=== PATIENT | female | born 1965 | race Caucasian/White ===

== ENCOUNTER 2025-02-05 11:08 | Inpatient (IN) | payer OTHER ==
[2025-02-05] VITALS (7 sets, daily range): BP systolic 143–161; BP diastolic 55–73
[~2025-02-05] VITALS: Ht 162.6 cm; Wt 111.8 kg
[2025-02-05] MEDS ORDERED: METOPROLOL SUC100 MG PO (11:27)
[2025-02-05] MEDS ORDERED: TRESIBA100 UNIT/1 SQ (11:27)
[2025-02-05] MEDS ORDERED: NOVOLOG100 UNIT/2 (11:27)
[2025-02-05] MEDS ORDERED: COZAAR100 MG PO (11:28)
[2025-02-05] MEDS ORDERED: PIPERACILLIN/TAZOBACTAM 4.5 GM in SODIUM CHLORIDE 0.9% 100 ML IV ONE (11:45)
[2025-02-05 11:54] LABS: BASOPHILS 0.2 % (0.1-1.2); EOSINOPHILS 0.1 % (0.7-5.8); LYMPHOCYTES 6.6 % (19.3-51.7); MCH 28.7 PG (25.6-32.2); MCHC 34.3 g/dL (32.2-35.5); MCV 83.6 fL (79.4-94.8); MONOCYTES 2.4 % (4.7-12.5); NEUTROPHILS 89.6 % (34.0-71.1); RBC 4.64 M/uL (3.93-5.22)
[2025-02-05 12:15] LABS: ALT (SGPT) 21.0 U/L (14-59); AST (SGOT) 16.0 U/L (15-37); GLOMERULAR FILTRATION RATE,EST 30.0 mL/min (>60); PROTEIN, TOTAL 6.9 g/dL (6.4-8.2); UREA NITROGEN 47.0 mg/dL (7-18)
[2025-02-05] MEDS ORDERED: Insulin Regular, Human 100 UNIT/ML ML IV ONE ×3 (12:30→14:45)
[2025-02-05] MEDS ORDERED: LACTATED RINGER'S 1,000 ML IV ONE (12:30)
[2025-02-05 12:31] LABS: LACTIC ACID, BLOOD 1.4 mmol/L (0.4-2.0)
[2025-02-05] MEDS ORDERED: LACTATED RINGER'S 1,000 ML IV SCH (15:15)
[2025-02-05] MEDS ORDERED: KETOROLAC TROMETHAMINE 30 MG/ML VIAL IV PRN (15:15)
[2025-02-05] MEDS ORDERED: GLUCAGON,HUMAN RECOMBINANT 1 MG/ML VIAL SUB-Q PRN ×2 (15:30→19:00)
[2025-02-05] MEDS ORDERED: IBLOOD GLUCOSE TEST STRIP 1 EA TEST XX PRN ×2 (15:30→19:00)
[2025-02-05] MEDS ORDERED: DEXTROSE 5% 1,000 ML IV PRN ×2 (15:30→19:00)
[2025-02-05] MEDS ORDERED: DEXTROSE 50% 50 ML SYR IV PRN ×4 (15:30→19:00)
[2025-02-05] MEDS ORDERED: MIDAZOLAM HCL 5 MG/5 ML VIAL ONE (17:05)
[2025-02-05] MEDS ORDERED: KETAMINE in NS 50 MG/5 ML SYR ONE (17:23)
[2025-02-05] MEDS ORDERED: SUCCINYLCHOLINE IN 0.9% NACL 200 MG/10 ML SYRINGE ONE (17:38)
[2025-02-05] MEDS ORDERED: ROCURONIUM BROMIDE 50 MG/5 ML SYR ONE (17:38)
[2025-02-05] MEDS ORDERED: LIDOCAINE HCL 2% 5 ML SDV ONE (17:42)
--- NOTE | 2025-02-05 17:51 | EKG ---
[facility] [address] [facility] [place], [place] [address] Signed Normal sinus rhythm Cannot rule out Anterior infarct , age undetermined Abnormal ECG No previous ECGs available Confirmed by Vicente Veliz DO ([id number]) on 02/05/2025 5:51:10 PM Electronically Signed By: VICENTE VELIZ DO 02/05/251750 PATIENT NAME: GUNNAR DASH HEARD Electrocardiogram DATE OF : 69 PHYSICIAN: VICENTE VELIZ DO REPORT #: [id number] REPORT IS CONFIDENTIAL AND NOT TO BE RELEASED WITHOUT AUTHORIZATION
[2025-02-05] MEDS ORDERED: fentaNYL citrate 100 MCG/2 ML VIAL ONE (18:06)
[2025-02-05] MEDS ORDERED: DEXAMETHASONE SOD PHOS 4 MG/ML VIAL ONE (18:22)
[2025-02-05] MEDS ORDERED: KETOROLAC TROMETHAMINE 30 MG/ML VIAL ONE (18:22)
--- NOTE | 2025-02-05 19:03 | HP ---
[facility] [address] [place], [place] [address] Signed ADMISSION DATE: 02/05/2025 REASON FOR ADMISSION: Right large perirectal abscess and diabetes poorly controlled (blood sugar 500 at presentation). HISTORY OF PRESENT ILLNESS: This 59-year-old woman presented to the emergency room at approximately 11:30 a.m. and was evaluated by Dr. Rai Villagomez in with complaints of right perianal pain. Her symptoms began several days ago. She has had increasing swelling in the right perianal area and tenderness, which is now essentially unbearable. Her blood sugars have been poorly controlled for the past week and presentation blood sugar was over 500. The patient has been taking her normal insulin routine and not eating too much. She has had an abdominal abscess anteriorly that is just now healing up she says. The patient has had no fever, chills, or signs of systemic sepsis particularly. PAST MEDICAL HISTORY: Notable for obesity, diabetes mellitus and hypertension. PAST SURGICAL HISTORY: Include x2, uterine ablation and oral surgery in the past. CURRENT MEDICATIONS: Include: 1. NovoLog insulin 24 units t.i.d. with meals. 2. Tresiba insulin 100 units subcu. 3. Metoprolol 100 mg p.o. daily. 4. Losartan 100 mg p.o. daily. SOCIAL HISTORY: She is accompanied by her . She lives in [place]. PHYSICAL EXAMINATION: GENERAL: A very obese white woman, BMI of 42.8. HEENT: Mucous membranes are slightly dry. Trachea is midline. She has an IV running. Blood sugar after 6 units of insulin was 329, down from 500. Additional 4 units are now being given under the direction of the emergency room physician. CHEST: Clear. HEART: Regular without murmur. Electronically Signed By: ANGELA SOOD MD 02/05/25 1903 PATIENT NAME: DASH FERRELL HISTORY AND PHYSICAL DATE OF : 69 REPORT #: [id number] PHYSICIAN: ANGELA SOOD MD PCP: YOAV FELTON MD REPORT IS CONFIDENTIAL AND NOT TO BE RELEASED WITHOUT AUTHORIZATION [facility] [address] [place], [place] [address] Signed ABDOMEN : Quite obese and nontender. In the lateral decubitus position left side down, the right perianal area shows marked edema and point tenderness and cellulitic changes consistent with perirectal abscess. LABORATORY STUDIES: Show white count of 20.4, creatinine of 1.92, hematocrit 38.8. Electrolytes are otherwise normal. Liver enzymes normal. A CT scan was performed, which showed an 8.3 cm gas-filled perianal abscess, phlegmon to the right of the midline, extended to the right gluteal soft tissue area. ASSESSMENT: The patient has obvious perirectal abscess and her elevated glucose is reflective of that for the past several days. She is undergoing IV fluid administration and insulin for blood sugar control and has been started on Zosyn antibiotic. I have recommended incision and drainage of the perirectal abscess. Discussed with her using the whiteboard in the presence of her the pathophysiology of perirectal abscess, she has not had this before. The risk of bleeding, infection, recurrence and so forth were reviewed with her in detail. She understands and wished to proceed. Upon conferring with the recyclable materials collector since she ate a full meal at 9:00 a.m. and it is recently only 2 o'clock or so, additional time is needed for gastric clearance particularly as she does have diabetes if she is to get sedation in addition to a saddle block anesthetic, which is our plan. This should be fine. MD RD Castillo/SRINIVASAL /[id number] cc: Dr. Rai Colunga MD Electronically Signed By: ANGELA SOOD MD 02/05/25 1903 PATIENT NAME: ANDREA FERRELLSHREYA Galvez HISTORY AND PHYSICAL DATE OF : 69 REPORT #: [id number] PHYSICIAN: ANGELA SOOD MD PCP: YOAV FELTON MD REPORT IS CONFIDENTIAL AND NOT TO BE RELEASED WITHOUT AUTHORIZATION [facility] [address] [facility] [place] [address] Signed Copies: ~ Electronically Signed By: ANGELA SOOD MD 02/05/251902 PATIENT NAME: ANDREA FERRELLSHREYA Galvez HISTORY AND PHYSICAL DATE OF : 69 REPORT #: [id number] PHYSICIAN: ANGELA SOOD MD PCP: YOAV FELTON MD REPORT IS CONFIDENTIAL AND NOT TO BE RELEASED WITHOUT AUTHORIZATION
[2025-02-05] MEDS ORDERED: LABETALOL HCL 20 MG/4 ML VIAL IV PRN (19:15)
[2025-02-05] MEDS ORDERED: OXYCODONE/APAP 7.5/325 TAB PO PRN (19:30)
[2025-02-05] MEDS ORDERED: IBUPROFEN 600 MG TAB PO PRN (19:30)
[2025-02-05] MEDS ORDERED: ACETAMINOPHEN 500 MG TAB PO PRN ×2 (19:30→20:00)
[2025-02-05] MEDS ORDERED: FAMOTIDINE 20 MG/ 2 ML VIAL IV ONE (20:30)
[2025-02-05] MEDS ORDERED: IBLOOD GLUCOSE TEST STRIP 1 EA TEST VI SCH (21:00)
[2025-02-05] MEDS ORDERED: INSULIN GLARGINE-YFGN 100 UNIT/ML ML SUB-Q SCH ×2 (21:00)
[2025-02-05] MEDS ORDERED: FAMOTIDINE 20 MG/ 2 ML VIAL IV SCH (21:00)
[2025-02-05] MEDS ORDERED: INSULIN LISPRO 100 UNIT/ML ML SUB-Q SCH (21:00)
[2025-02-05] MEDS ORDERED: INSULIN LISPRO 100 UNIT/ML ML SUB-Q ONE (21:45)
[2025-02-05] MEDS ORDERED: PIPERACILLIN/TAZOBACTAM 4.5 GM in SODIUM CHLORIDE 0.9% 100 ML IV SCH (22:00)
[2025-02-05] MEDS ORDERED: MICONAZOLE NITRATE 1 EA BTL TOP SCH (23:28)
[2025-02-06] VITALS (11 sets, daily range): BP systolic 132–174; BP diastolic 54–80
[2025-02-06 05:23] LABS: BASOPHILS 0.2 % (0.1-1.2); EOSINOPHILS 0 % (0.7-5.8); LYMPHOCYTES 8.4 % (19.3-51.7); MCH 28.6 PG (25.6-32.2); MCHC 33.2 g/dL (32.2-35.5); MCV 86.0 fL (79.4-94.8); MONOCYTES 4.9 % (4.7-12.5); NEUTROPHILS 84.7 % (34.0-71.1); RBC 4.20 M/uL (3.93-5.22)
[2025-02-06 05:33] LABS: GLOMERULAR FILTRATION RATE,EST 35.0 mL/min (>60); UREA NITROGEN 47.0 mg/dL (7-18)
[2025-02-06] MEDS ORDERED: INSULIN GLARGINE-YFGN 100 UNIT/ML ML SUB-Q SCH ×2 (09:00→21:00)
[2025-02-06] MEDS ORDERED: SEVOFLURANE 250 ML BTL INH ONE (14:39)
[2025-02-07] VITALS (10 sets, daily range): BP systolic 140–180; BP diastolic 59–95
[2025-02-07 05:50] LABS: ALT (SGPT) 18.0 U/L (14-59); AST (SGOT) 14.0 U/L (15-37); GLOMERULAR FILTRATION RATE,EST 41.0 mL/min (>60); PROTEIN, TOTAL 6.4 g/dL (6.4-8.2); UREA NITROGEN 38.0 mg/dL (7-18)
[2025-02-07 06:17] LABS: BASOPHILS 0.6 % (0.1-1.2); EOSINOPHILS 0.5 % (0.7-5.8); LYMPHOCYTES 25.8 % (19.3-51.7); MCH 28.6 PG (25.6-32.2); MCHC 33.6 g/dL (32.2-35.5); MCV 85.0 fL (79.4-94.8); MONOCYTES 7.7 % (4.7-12.5); NEUTROPHILS 60.4 % (34.0-71.1); RBC 4.34 M/uL (3.93-5.22)
[2025-02-07] MEDS ORDERED: FAMOTIDINE 20 MG TAB PO SCH (09:00)
[2025-02-07] MEDS ORDERED: INSULIN GLARGINE-YFGN 100 UNIT/ML ML SUB-Q SCH (09:00)
[2025-02-07] MEDS ORDERED: METOPROLOL SUCCINATE 100 MG TABCR PO SCH (09:00)
--- NOTE | 2025-02-07 11:56 | OR ---
[facility] [address] [place], [place] [address] Signed DATE OF OPERATION: 02/05/2025 SURGEON: Angela Sood MD PREOPERATIVE DIAGNOSES: 1. Right complex extensive perirectal abscess. 2. Diabetes, out of control. 3. Morbid obesity. POSTOPERATIVE DIAGNOSES: 1. Right anterolateral complex extensive perirectal abscess. 2. Fatty necrosis of portions of right medial gluteal adipose tissue. PROCEDURES: 1. Exam under anesthesia. 2. Incision and drainage of complex right anterolateral perirectal abscess. 3. Debridement of right gluteal fat necrosis. 4. Placement of yellow vessel loop seton in anorectal area and yellow vessel loop draining seton x2 gluteal area. ANESTHESIA: General endotracheal; Kylee Brown CRNA, and local 10 mL of 0.25% Marcaine with epinephrine. INDICATION: This is a morbidly obese 59-year-old diabetic woman, who is a patient of Dr. Vanessa Colunga, generally speaking, and has had a week of increasing right gluteal and perianal pain with diabetes becoming out of control. She presented to the emergency room where she was thoroughly evaluated by Dr. Rai Villagomez, emergency room physician and found to have clinical findings of perirectal abscess, which was rather extensive and extending to the gluteal area inferiorly. Her blood sugar at presentation was over 500 with additional insulin now on approximately 329. Quite notably, she has been taking her insulin, though she has not been eating all that much. She has no sign of systemic toxicity, but her white count is elevated. A CT scan was performed under the direction of Dr. Villagomez confirming an obvious right anterolateral perirectal abscess, which is greater than 9 cm. She is admitted at this time to undergo incision and drainage of the abscess and other indicated procedures including debridement as appropriate. The risk of bleeding, infection, formation of a chronic qagnvvp-cn-ybe (10% chance) as well as need for additional treatment was all reviewed in detail. She understands and wished to proceed. Electronically Signed By: ANGELA SOOD MD 02/07/25 1156 PATIENT NAME: DASH FERRELL OPERATIVE REPORT DATE OF : 69 REPORT #: [id number] PHYSICIAN: ANGELA SOOD MD PCP: YOAV FELTON MD REPORT IS CONFIDENTIAL AND NOT TO BE RELEASED WITHOUT AUTHORIZATION [facility] [address] [place], [place] [address] Signed FINDINGS: As noted preoperatively, she had a small resolving anterior abdominal wall subcutaneous abscess in her thick abdominal wall pannus. There was no sign of drainable fluid, only induration. As regard, the right anterolateral perirectal abscess, it was rather extensive, though it was not a supralevator abscess and an absolutely originated in the anal canal as would be expected. There was necrotic fat in the gluteus that required debridement. By conclusion, a seton was placed as close as possible to the anal canal and other draining loop extending from the outside aspect of that drainage and she had another in the gluteus after debridement of necrotic fat. She tolerated the procedure well. DESCRIPTION OF PROCEDURE: The patient was brought to the operating room and an attempt had a spinal anesthetic, it was unsuccessful. We had waited a full 8 hours since her last meal ingestion before proceeding to the OR. Preop antibiotic Zosyn had already been initiated and insulin had been administered for blood sugar control. With failure of the regional anesthetic, a general endotracheal anesthetic was initiated without problem. With all of the care, she was placed in a prone andrés-knife position with careful padding of face and arms and so forth. The buttocks were taped apart revealing a markedly inflamed and edematous right medial gluteal area consistent with cellulitic change and abscess. The buttocks were taped apart and the perineum prepared with a Betadine-based solution. Interrogation of the anal canal showed that the process extended from within the anal canal as was expected. Approximately 2 inches from the anal verge, an incision was made with a 15 blade initiating a copious drainage of foul-smelling purulence. Cultures and Gram stains were obtained. The space was taken down gently with hemostat revealing copious amounts of purulence. A counter incision was made in the inferolateral aspect several inches from that site as the process extended inferiorly. A yellow vessel loop was placed through this to allow for elevation of the skin bridge. Suctioning was undertaken more fully and ultimate irrigation undertaken as well. Towards the anal canal area, interrogation with a hemostat showed that the process emanated from just above the dentate line as might be expected. A yellow vessel loop was passed with the seton into this area too. Irrigation was undertaken until clear. There appeared to be residual induration laterally and a counter incision was ultimately made. Loculations broken down more fully identifying additional pockets of purulence. A yellow vessel loop was secured in that area as well. Once the loculations were fully broken down, debridement of necrotic fat was undertaken in the gluteal area with [place] forceps. A 5 mL necrotic material was debrided. Some was sent for permanent pathology. Irrigation was then undertaken of all of the cavities in continuity and once the irrigation fluid clear and no evidence of additional induration or necrotic fat, 10 mL of 0.25% Marcaine with epinephrine was injected locally in the incision sites. ABD pad Electronically Signed By: ANGELA SOOD MD 02/07/25 8826 PATIENT NAME: DASH FERRELL OPERATIVE REPORT DATE OF : 69 REPORT #: [id number] PHYSICIAN: ANGELA SOOD MD PCP: YOAV FELTON MD REPORT IS CONFIDENTIAL AND NOT TO BE RELEASED WITHOUT AUTHORIZATION [facility] [address] [place] [place] [address] Signed was applied. She was returned to the supine position, ultimately extubated and transferred to the recovery room in good condition having suffered no known complications. Blood loss was less than 10 mL. Sponge, needle, and counts reported as correct x3. MD RD Castillo/MODL /[id number] cc: Dr. Rai Lorenz MD Copies: ~ Electronically Signed By: ANGELA SOOD MD 02/07/25 1156 PATIENT NAME: GUNNAR HEARDDASH Galvez OPERATIVE REPORT DATE OF : 69 REPORT #: [id number] PHYSICIAN: ANGELA SOOD MD PCP: YOAV FELTON MD REPORT IS CONFIDENTIAL AND NOT TO BE RELEASED WITHOUT AUTHORIZATION
[2025-02-07] MEDS ORDERED: CIPROFLOXACIN 500 MG TAB PO SCH (13:00)
--- NOTE | 2025-02-08 12:05 | DS ---
[facility] [address] [place], [place] [address] Signed ADMISSION DATE: 02/06/2025 DISCHARGE DATE: 02/07/2025 REASON FOR ADMISSION: This 59-year-old woman is a patient Dr. Niki Felton and presented to the emergency room at approximately 11:30 a.m. and evaluated by Dr. Villagomez with complaints of right perineal pain. A CT scan was performed confirming clinical suspicion of a large perirectal abscess on the right side. Notably, she had diabetes out of control with a blood sugar over 500. She has underlying issues of diabetes mellitus, hypertension, and obesity. Her medicines at admission include NovoLog insulin, Tresiba insulin, metoprolol, and losartan. She is accompanied by her . PHYSICAL EXAMINATION: GENERAL: At time of admission showed an obese white woman who did not look systemically toxic. BMI is 42.8. HEENT: Mucous membranes dry. Trachea midline. CHEST: Clear. HEART: Regular without murmur. ABDOMEN: Obese, nontender, lateral decubitus position left side down showed a right perirectal abscess with marked edema and point tenderness and cellulitic changes. LABORATORY STUDIES: Showed a white count of 20.4, creatinine of 1.92, hematocrit 38.8. Electrolytes otherwise normal. Liver enzymes normal. IMAGING: CT scan showing an 8.3 cm gas-filled perirectal abscess and phlegmon to the right of the midline extending to the right gluteal soft tissue area. HOSPITAL COURSE: The patient was fluid resuscitated at approximately 6:38 p.m. underwent operation including exam under anesthesia with incision and drainage of complex right anterolateral perirectal abscess. Extensive fat necrosis was noted and debridement was undertaken of that. Placement of yellow vessel loops x3 including the seton in the probable anal fistulous opening as well as soft tissue areas was undertaken. She tolerated the procedure well. Her broad-spectrum antibiotic Zosyn was maintained postoperatively. Gram stains showed numerous white cells, gram-negative rods and gram-positive cocci. Cultures ultimately were pending at time of discharge, but did show moderate number of gram-positive cocci and many gram-negative rods as previously noted. Given her diabetes consultation was undertaken with the hospitalist, Dr. Mustafa. Her elevated creatinine was trending downward and her blood sugars improved consistently Electronically Signed By: ANGELA SOOD MD 02/08/25 1205 PATIENT NAME: DASH FERRELL DISCHARGE SUMMARY DATE OF : 69 REPORT #: [id number] PHYSICIAN: ANGELA SOOD MD PCP: NIKI FELTON MD REPORT IS CONFIDENTIAL AND NOT TO BE RELEASED WITHOUT AUTHORIZATION [facility] [address] [place], [place] [address] Signed with resolution of her infective process. Transition to oral antibiotics was initiated including Flagyl 250 mg t.i.d. and Cipro 500 mg p.o. b.i.d. A plan for discharge the following day was outlined to be on February 08. Her white count was decreasing and she was looking quite good, tolerating well sitz baths that had been prescribed. In the middle of the night on February 07, patient declared she wanted to leave the hospital, and against medical advice did so. She was not considered to be toxic, hypoxemic or otherwise compromised in her decision-making capacity, though it is admitted that she may have underlying underdiagnosed psychiatric issues. She was discharged to home against medical advice. Her discharge medications would be that which she was taking at home. I was anticipating she take additionally Cipro and Flagyl, particularly pending cultures and for five days following discharge. I will attempt to call patient and initiate her antibiotic regimen as an outpatient at home now that pharmacies are available to fulfill the prescription. I would anticipate to see her back in the office in two weeks to allow for removal of the yellow vessel loop drains. DISCHARGE DIAGNOSES: 1. 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 2. Underlying diabetes mellitus. 3. Hypertension. 4. Morbid obesity. Angela Sood MD JM/MODL /[id number] cc: DO Niki Yates MD Electronically Signed By: ANGELA SOOD MD 02/08/25 1205 PATIENT NAME: ANDREA FERRELLSHREYA Galvez DISCHARGE SUMMARY DATE OF : 69 REPORT #: [id number] PHYSICIAN: ANGELA SOOD MD PCP: NIKI FELTON MD REPORT IS CONFIDENTIAL AND NOT TO BE RELEASED WITHOUT AUTHORIZATION [address] [address] Signed Copies: ~ Electronically Signed By: ANGELA SOOD MD 02/08/25 1205 PATIENT NAME: DASH FERRELL DISCHARGE SUMMARY DATE OF : 69 REPORT #: [id number] PHYSICIAN: ANGELA SOOD MD PCP: NIKI FELTON MD REPORT IS CONFIDENTIAL AND NOT TO BE RELEASED WITHOUT AUTHORIZATION
--- NOTE | 2025-02-08 12:05 | CONS ---
[facility] [address] [place] [address] Signed DATE OF CONSULTATION: I called patient at [phone] (her home) regarding her leaving the hospital last night against medical advice. At home, she appears to be doing well. She resists the idea of sitz baths, but is willing to do showering for her perineal problem. She does allow for me to prescribe antibiotics for her and I was available to send them to any local pharmacy. She insists on her [facility] unfortunately. I did call that number at [phone] and prescribed for her Flagyl 250 mg p.o. t.i.d. #15 and Augmentin 500 mg p.o. b.i.d. #10. The patient realizes a delay in mailing may adversely affect her health care, but insisted the pharmacy mail be used. The patient will be calling my office to set up a followup appointment within the next two weeks or so. MD RD Castillo/CARRIE /[id number] cc: Dr. Felton Copies: ~ Electronically Signed By: ANGELA SOOD MD 02/08/25 1205 PATIENT NAME: DASH FERRELL CONSULTATION DATE OF : 69 REPORT #: [id number] PHYSICIAN: ANGELA SOOD MD PCP: YOAV FELTON MD REPORT IS CONFIDENTIAL AND NOT TO BE RELEASED WITHOUT AUTHORIZATION
== END 2025-02-07 23:39 | disposition left against medical advice (07) | DRG 348 ==
LOC: ED 11:08 → MS 11:10
PROVIDERS: Emergency Medicine; Student in an Organized Health Care Education/Training Program; ADMIT Surgery; ATTEND Surgery
PROC: 0JD90ZZ Extraction of Buttock Subcutaneous Tissue and Fascia, Open Approach (ICD-10-PCS; 2025-02-05)
PROC: 0D9Q00Z Drainage of Anus with Drainage Device, Open Approach (ICD-10-PCS; principal; 2025-02-05 17:00)
DX: K61.1 Rectal abscess (principal); I96 Gangrene, not elsewhere classified; L02.211 Cutaneous abscess of abdominal wall; L02.31 Cutaneous abscess of buttock; Z68.41 Body mass index [BMI] 40.0-44.9, adult; N17.9 Acute kidney failure, unspecified; E11.65 Type 2 diabetes mellitus with hyperglycemia; I10 Essential (primary) hypertension; G47.33 Obstructive sleep apnea (adult) (pediatric); E66.01 Morbid (severe) obesity due to excess calories; Z53.29 Procedure and treatment not carried out because of patient's decision for other reasons; Z79.4 Long term (current) use of insulin; Z88.8 Allergy status to other drugs, medicaments and biological substances
CPT/HCPCS: 00902; 36415; 70553; 72192; 74150; 80048; 80053; 83036; 83605; 85025; 85060; 87205; 93005; 93010; 94762; 94799; A9270; A9573; G0378; J0330; J1100; J1815; J1885; J2003; J2250; J2405; J2543; J2704; J3010; J3490; J7121

== ENCOUNTER 2025-05-31 20:48 | Emergency (ER) | payer OTHER ==
[~2025-05-31] VITALS: Ht 162.6 cm; Wt 111.8 kg
[~2025-05-31 20:48] MED LIST: COZAAR100 MG PO; METOPROLOL SUC100 MG PO; NOVOLOG100 UNIT/2; TRESIBA100 UNIT/1 SQ
[2025-05-31] MEDS ORDERED: IBLOOD GLUCOSE TEST STRIP 1 EA TEST XX ONE (21:00)
[2025-05-31 21:22] LABS: BASOPHILS 0.4 % (0.1-1.2); EOSINOPHILS 1.7 % (0.7-5.8); LYMPHOCYTES 36.4 % (19.3-51.7); MCH 27.9 PG (25.6-32.2); MCHC 34.3 g/dL (32.2-35.5); MCV 81.3 fL (79.4-94.8); MONOCYTES 6.9 % (4.7-12.5); NEUTROPHILS 54.3 % (34.0-71.1); RBC 5.20 M/uL (3.93-5.22)
[2025-05-31 21:35] LABS: INR 0.93 (0.80-1.30); PROTIME 11.9 Sec (11.2-14.2)
[2025-05-31 21:43] LABS: ALT (SGPT) 20.0 U/L (14-59); AST (SGOT) 9.0 U/L (15-37); GLOMERULAR FILTRATION RATE,EST 55.0 mL/min (>60); PROTEIN, TOTAL 6.7 g/dL (6.4-8.2); UREA NITROGEN 17.0 mg/dL (7-18)
[2025-05-31] MEDS ORDERED: LABETALOL HCL 20 MG/4 ML VIAL IV ONE ×2 (21:45→22:00)
[2025-05-31] MEDS ORDERED: Insulin Regular, Human 100 UNIT/ML ML IV ONE (22:00)
[2025-05-31] MEDS ORDERED: METOPROLOL TARTRATE 5 MG/5 ML VIAL IV SCH (22:15)
[2025-05-31] MEDS ORDERED: LORazepam 2 MG/ML VIAL IV ONE (22:30)
[2025-05-31] MEDS ORDERED: ENALAPRILAT DIHYDRATE 1.25 MG/ML VIAL ONE (22:41)
[2025-05-31] MEDS ORDERED: ENALAPRILAT DIHYDRATE 1.25 MG/ML VIAL IV ONE (22:45)
[2025-05-31 23:22] LABS: BLOOD/HGB, URINE SMALL (Negative); KETONE, URINE NEGATIVE (Negative); LEUK ESTERASE, URINE NEGATIVE (negative); NITRITE, URINE NEGATIVE (negative)
[2025-05-31 23:28] LABS: EPITHELIAL CELLS, URINE SQUAMOUS 1+ /lpf (0-1+)
[2025-05-31 23:29] LABS: BACTERIA, URINE 3+ /hpf (negative); CASTS, URINE NONE SEEN \\lpf; CRYSTALS, URINE NONE SEEN (0-1+); REFLEX CULTURE, URINE Yes (No)
[2025-05-31 23:36] LABS: BARBITURATES, URINE NEGATIVE (NEGATIVE); BENZODIAZEPINE, URINE NEGATIVE (NEGATIVE); COCAINE, URINE NEGATIVE (NEGATIVE); ECSTASY, URINE NEGATIVE (NEGATIVE); FENTANYL, URINE NEGATIVE (NEGATIVE); METHADONE, URINE NEGATIVE (NEGATIVE); OPIATES, URINE NEGATIVE (NEGATIVE); OXYCODONE, URINE NEGATIVE (NEGATIVE); PHENCYCLIDINE, URINE NEGATIVE (NEGATIVE)
[2025-06-01 00:01] LABS: AMPHETAMINES, URINE NEGATIVE (NEGATIVE); CANNABINOID, URINE POSITIVE (NEGATIVE)
[2025-06-01] MEDS ORDERED: LORazepam 2 MG/ML VIAL IV ONE (00:45)
[2025-06-01] MEDS ORDERED: HALOPERIDOL LACTATE 5 MG/ML VIAL IV ONE (02:00)
[2025-06-01 02:30] VITALS: BP 132/110
[2025-06-01] MEDS ORDERED: LIDOCAINE 2% VISCOUS 6 ML SYR TOP ONE (03:15)
--- NOTE | 2025-06-01 22:45 | EKG ---
[facility] [address] [facility] [place], [place] [address] Signed Normal sinus rhythm Cannot rule out Anterior infarct (cited on or before 05-FEB-2025) Abnormal ECG When compared with ECG of 05-FEB-2025 16:48, No significant change was found Confirmed by Zaira Cesar MD () on 06/01/2025 10:45:02 PM Electronically Signed By: ZAIRA CESAR MD 06/01/25 2245 PATIENT NAME: DASH FERRELL Electrocardiogram DATE OF : 69 PHYSICIAN: ZAIRA CESAR MD REPORT #: [id number] REPORT IS CONFIDENTIAL AND NOT TO BE RELEASED WITHOUT AUTHORIZATION
== END 2025-06-01 02:30 | disposition short-term general hospital (02) ==
LOC: ED 20:48
PROVIDERS: Family Medicine
DX: I63.9 Cerebral infarction, unspecified (principal); E11.9 Type 2 diabetes mellitus without complications; I10 Essential (primary) hypertension; Z79.4 Long term (current) use of insulin; Z79.899 Other long term (current) drug therapy; Z88.8 Allergy status to other drugs, medicaments and biological substances
CPT/HCPCS: 36415; 51702; 70450; 70496; 70498; 71045; 80053; 80307; 81001; 84484; 85025; 85610; 85730; 87088; 93005; 93010; 96374; 96375; 96376; 99291; A4311; J1630; J1815; J2060; J7060; Q3014; Q9967